=== PATIENT | female | born 1995 | race Caucasian/White ===

== ENCOUNTER 2016-08-26 17:31 | Emergency (ER) | payer OTHER ==
[~2016-08-26] VITALS: Ht 175.3 cm; Wt 104.3 kg
[~2016-08-26 17:31] MED LIST: /ANUSHCSU PR; /MOM400 PO; ABIL2TAB2 PO; ACET50TA PO; ACYC1CAP8 PO; ACYC200CA PO; BACT2CRE TOP; CLOTR1CR TOP; DOCU10ELUD PO; ERYT5OPO OS; IBUP600T26 PO; IBUP80TA PO; LEVO25TA5 PO; MUPI2OI TOP; OMEP20CA3 PO; PRENTAB74 PO; REME15TA PO; VIST25CA PO; ZOLO25TA PO
[2016-08-26] MEDS ORDERED: VRAY1.5C PO (20:37)
[2016-08-26] MEDS ORDERED: BRIN5TAB PO (20:37)
[2016-08-26] MEDS ORDERED: FLUO20CA9 PO (20:37)
[2016-08-26] MEDS ORDERED: PRAZ1CAP PO (20:37)
[2016-08-26] MEDS ORDERED: NS 1,000 ML IV ONE (21:00)
[2016-08-26] MEDS ORDERED: ONDANSETRON 4MG/2ML VIAL (J2405) IV ONE (21:00)
[2016-08-26] MEDS ORDERED: KETOROLAC 30 MG/ML VIAL (J1885) IV ONE (21:00)
[2016-08-26 23:17] VITALS: BP 150/81
== END 2016-08-26 23:19 | disposition home or self-care (01) ==
LOC: M ED 20:13
DX: R51 Headache (principal); R42 Dizziness and giddiness; K21.9 Gastro-esophageal reflux disease without esophagitis; E07.9 Disorder of thyroid, unspecified; F17.210 Nicotine dependence, cigarettes, uncomplicated; Z79.899 Other long term (current) drug therapy
CPT/HCPCS: 96374; 96375; 99282; J1885; J2405

== ENCOUNTER 2021-05-10 13:55 | Emergency (ER) | payer MEDICAID, OTHER ==
[~2021-05-10] VITALS: Ht 175.3 cm; Wt 128.3 kg
[~2021-05-10 13:55] MED LIST changes: -/ANUSHCSU PR; -/MOM400 PO; +ABIL1TAB13 PO; -ABIL2TAB2 PO; -ACET50TA PO; +ACYC1CAP20 PO; -ACYC1CAP8 PO; +ACYC200C8 PO; -ACYC200CA PO; +BRIN1TAB PO; +BRIN5TAB PO; +CLOT1CRE27 TOP; -CLOTR1CR TOP; -DOCU10ELUD PO; +DOCU5LIQ PO; +ERYT5OIN25 OS; -ERYT5OPO OS; +FLUO20CA22 PO; +HYDR1SUP3 PR; +MAPA500T17 PO; +MAPA500T2 PO; +MILK10SU PO; +MIRE1IUD IU; +MIRT-62 PO; +MUPI1OIN2 TOP; -MUPI2OI TOP; +OMEP1CAP73 PO; -OMEP20CA3 PO; +PRAZ1CAP PO; -REME15TA PO; +SUBO8MIS SL; +VENL75TA2 PO; +VRAY1.5C PO; +WELLTAB40 PO
[2021-05-10 13:56] VITALS: BP 114/57
--- OUTSIDE RECORDS SUMMARY | 2021-05-10 14:03 | CCD ---
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 Name Role Phone Dustin Polo Unavailable PROBLEMS No Information ALLERGIES Allergen (clinical drug ingredient) Drug/Non Drug Allergy do cumented on EMR Reaction Allergy Type Onset Date Status colchicine Colchicine vomiting Drug Allergy Active ENCOUNTERS from 1994 to 2021-03-07 Encounter Location Date Provider Diagnosis [facility] [address] [place] [address] [address] [place] [id number] Feb, Dustin Polo Left foot pain M79.672 and C losed fracture of sesamoid bone of left foot, initial encounter S92.812A IMMUNIZATIONS No Information SOCIAL HISTORY Tobacco Use: Social History Observation Description Date Details (start date - stop date) Current Smoker Sex Assigned At : Social History Observation Description Sex Assigned At Unknown Alcohol Screen (Audit-C) Question Answer Notes Did you have a drink containing alcohol in the past year? No Points 0 Interpretation Negative Tobacco Use/Smoking Question Answer Notes Patient is a current smoker How many cigarettes a day do you smoke? 11-20 How often do you smoke cigarettes? every day REASON FOR REFERRAL No Information VITAL SIGNS No information MEDICATIONS Medication SIG (Take, Route, Frequency, Duration) Notes Start Da te End Date Status Depakote 250 MG 1 tablet Orally Twice a day for 30 day(s) Active Prazosin HCl 1 MG 1 capsule Orally Once a day (AM) Active Gabapentin 100 MG 1 capsule Orally Three times a day Active predniSONE 2.5 MG 1 tablet Orally Once a day for 30 day(s) x 10 days Feb, Active Prazosin HCl 5 MG 1 capsule at bedtime Orally Once a day for 30 day(s ) Active Buprenorphine HCl-Naloxone HCl 8-2 MG 1 tablet under t he tongue and allow to dissolve Sublingual twice a day Active PROCEDURES No Information RESULTS No Results REASON FOR VISIT c/o L foot pain/swelling needs xrs MEDICAL (GENERAL) HISTORY Type Description Date Medical History depression Medical History anxiety Medical History mood disorder Medical History h/o opioid abuse (clean x 8 months) Medical History PTSD Surgical History appendectomy 2019 [place] No Information Health Concerns No Information MEDICAL EQUIPMENT No Information MENTAL STATUS No Information FUNCTIONAL STATUS No Information ASSESSMENTS Encounter Date Diagnosis Assessment Notes Treatment Notes Treatm ent Clinical Notes Feb, Left foot pain (ICD-10 - M79.672) X-rays of her left foot today show a fracture of the medial sesamoid under the first MTP joint. Somewhat difficult to tell if this is acute or old. Feb, Closed fracture of sesamoid bone of left foot, initial encounter (ICD-10 - S92.812A) Discussing this with the patient she does report an injury where she slipped on her foot climbing over some uneven driveway with large rocks in it. This may have been her inciting incident. Again I think this really does seem to be a sesamoid fracture under the first MTP joint rather than a case of gout. Although is not 100% definitive I recommend going forward with an MRI to check the acuity of the fracture of the sesamoid. I recommended a stiff soled boot or postoperative shoe to immobilize the first MTP joint. I think we treat this as though a fracture until we can prove otherwise. There is still possibility this is gout in the sesamoid is old but given her account of that injury as well as timing of the pain I think is more likely a sesamoid fracture. PLAN OF TREATMENT Treatment Notes Assessment Notes Clinical Notes Left foot pain X-rays of her left f oot today show a fracture of the medial sesamoid under the first MTP joint. Somewhat difficult to tell if this is acute or old. Closed fracture of sesamoid bone of left foot, initial encou nter Discussing this with the patient she does report an injury where she slipped on her foot climbing over some uneven driveway with large rocks in it. This may have been her inciting incident. Again I think this really does seem to be a sesamoid fracture under the first MTP joint rather than a case of gout. Although is not 100% definitive I recommend going forward with an MRI to check the acuity of the fracture of the sesamoid. I recommended a stiff soled boot or postoperative shoe to immobilize the first MTP joint. I think we treat this as though a fracture until we can prove otherwise. There is still possibility this is gout in the sesamoid is old but given her account of that injury as well as timing of the pain I think is more likely a sesamoid fracture. Treatment Notes Test Name Order Date [facility] 2021-03-07 MRI Lower Ext w/o Contrast - [id number] 2021-03-07 Next Appt Details 2 Weeks Reason:f/u MRI Follow Up:2 Weeksf/u MRI Insurance Providers Payer Name Payer Address Payer Phone Insured Name Patient Relati onship to Insured Coverage Start Date Coverage End Date Harpreet CAPELLAN [address] Corporate Claims Department [facility] [id number] Jayda Martinez self
--- OUTSIDE RECORDS SUMMARY | 2021-05-10 14:03 | CCD ---
Author Author Tata Nahomi [facility] er Organization [facility] [place] [facility] er Address Unknown Phone Unavailable Care Team Providers Care Ribber Name Role Phone Dustin Polo Unavailable PROBLEMS No Information ALLERGIES Allergen (clinical drug ingredient) Drug/Non Drug Allergy do cumented on EMR Reaction Allergy Type Onset Date Status colchicine Colchicine vomiting Drug Allergy Active ENCOUNTERS from 1994 to 2021-03-18 Encounter Location Date Provider Diagnosis [facility] [address] [place] [address] [place] [id number] Feb, Dustin Polo IMMUNIZATIONS No Information SOCIAL HISTORY Tobacco Use: [...] Information RESULTS No Results REASON FOR VISIT MRI APT MEDICAL (GENERAL) HISTORY Type Description Date Medical History depression Medical History anxiety Medical History mood disorder Medical History h/o opioid abuse (clean x 8 months) Medical History PTSD Surgical History appendectomy 2020 [place] No Information Health Concerns No Information MEDICAL EQUIPMENT No Information MENTAL STATUS No Information FUNCTIONAL STATUS No Information ASSESSMENTS No Information PLAN OF TREATMENT No Information Insurance Providers Payer Name Payer Address Payer Phone Insured Name Patient Relati onship to Insured Coverage Start Date Coverage End Date Harpreet CAPELLAN [address] Corporate Claims Department A [facility] [id number] Jayda Martinez Medicaid [address] [facility] [id number] Jayda Dozier self
--- OUTSIDE RECORDS SUMMARY | 2021-05-10 14:03 | CCD ---
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 Interpretation Code Description Data Diamond rce(s) Supporting Document(s) Uric Acid 2.6-6.0 Normal (applies to non-numeric resul ts) [facility] ID Date Data Source [id number] 03/01/2021 07:20:00 PM EDT [facility] Name Value Range Interpretation Code Description Data Diamond rce(s) Supporting Document(s) C-Reactive Protein,Wide Range <3.00 Above high normal [facility] ID Date Data Source [id number] 02/10/2021 09:35:00 PM EDT [facility] Name: JAYDA GROVE [facility] Rec #: [id number] : 1995 Age/Sex: 25F Date of Service: 02/10/21 PHYSICIAN CHART Physician Documentation [facility] Name: Jayda Grove Age: 25 yrs Sex: Female : 1995 Arrival Date: 02/10/2021 Time: 21:35 Bed 8 Private MD: Ness Kirkpatrick ED Physician Margaux Balbuena Disposition: 02/11 00:01 Attestation: Patient was seen by the Advanced Practice borwn Provider. I was personally available in the department for consultation but did not see or discuss the patient with them. 00:06 Chart complete. [facility] HPI: 02/10 22:18 This 25 yrs old Female presents to ER via Walk-In wj with complaints of Foot Pain - possibe cellulitis. 22:18 Patient 25-year-old female IV drug abuser with complaints wjj of red swollen painful left foot x1 week patient denies any trauma and states the swelling and pain seem to be getting worse. Patient denies any known puncture wounds to this area. Patient also denies history of gout. Patient denies IV drug use in her feet. Patient states she last used 2 days ago.. SYSTEMS ENG: 21:45 LMP N/A - control method rc5 Historical: - Allergies: Latex, Natural Rubber; - Home Meds: 1. Suboxone sublingual 18mg once a day 2. aripiprazole 15 mg oral tab 1 tab once daily 3. gabapentin 100 mg oral tab three times a day 4. hydroxyzine HCl 25 mg Oral tab 1 tab 4 times per day - PMHx: BIPOLAR DISORDER; substance abuse; IV drug use; - PSHx: Appendectomy; - Med Reconciliation:: Green Alert: The patient's med list is complete to the best of the nurse's/provider's knowledge. Medications reviewed, completed by nurse verbally from patient/family. - Immunization history,: COVID-19 vaccine: Not immunized. - Advance directive: There is no existing advanced directive. Information offered. - Family History:: mother is healthy, Father is healthy. - Social History: Smoking status (Tobacco): Patient states is a heavy tobacco smoker (>10 cigarettes a day). Preferred Language: Dominican. ROS: 22:20 Constitutional: Negative for fever, chills, and weight wjj loss. MS/extremity: See HPI. All other systems are negative. Exam: 22:20 Constitutional: This is a well developed, well nourished wjj patient who is awake, alert, and in no acute distress. 22:20 Musculoskeletal/extremity: Ex tremities: Left lower extremity there is swelling and tenderness localized to the first MTP region more lateral plantar aspect of the foot there is full active range of motion with no neurovascular deficit distally there is no lymphangitis there is no evidence of puncture wound or foreign body noted. No other areas of involvement.. Vital Signs: 21:45 BP 111 / 65; Pulse 83; Resp 20; Temp 98.6; Pulse Ox 99% on rc5 R/A; Weight 106.59 kg; Height 5 ft. 9 in. (175.26 cm); 23:43 BP 93 / 64; Pulse 71; Resp 20; Pulse Ox 99% on R/A; tc2 02/11 00:12 BP 108 / 71; Pulse 76; Resp 18; Pulse Ox 99% on R/A; tc2 02/10 21:45 Body Mass Index 34.70 (106.59 kg, 175.26 cm) rc5 MDM: 02/10 21:52 Patient medically screened. [facility] 22:21 Data reviewed: vital signs, nurses notes. [facility] 02/11 00:09 Case presented to: Margaux Balbuena MD. [facility] 02/10 22:18 Order name: Uric Acid; Complete Time: 23:38 [facility] 02/10 22:18 Order name: Cbc With Auto Differential; Complete Time: 23:38[facility] 02/10 22:18 Order name: Foot Lt Min 3 Views Each - Xray [facility] 02/10 22:18 Order name: COMMET; Complete Time: 23:38 [facility] 02/10 22:18 Order name: Lactic Acid; Complete Time: 23:38 [facility] 02/10 22:18 Order name: Blood Culture - Venous w Dispensed Medications: 02/10 23:43 Drug: Ibuprofen 600 mg [ibuprofen 600 mg tablet (1 tabs)] tc2 Route: PO; 02/11 00:14 Follow up: Response: Pain is decreased tc2 00:13 Drug: Colchicine 1.2 mg [colchicine 0.6 mg capsule (2 tc2 caps)] {Note: 0.6 sent with patient and education provided to take dose in 30 minutes. .} Route: PO; 00:13 Follow up: Response: Medication administered at discharge. tc2 00:14 Drug: Doxycycline 200 mg [doxycycline hyclate 100 mg tc2 capsule (2 caps)] Route: PO; 00:14 Follow up: Response: Medication administered at discharge. tc2 Disposition Summary: 02/11/21 00:06 Discharge Ordered Location: Home/Self Care wj Condition: Good wjj Diagnosis - Gout, unspecified wjj Followup: wjj - With: Ness Kirkpatrick - When: 2 - 3 days - Reason: Recheck today's complaints, Continuance of care Discharge Instructions: - Discharge Summary Sheet w - Gout, Swko-to-Yrbo wjj Forms: - Medication Reconciliation w Prescriptions: - colchicine 0.6 mg Oral tablet - take 1 tablet by ORAL route 2 times per day; 10 wjj tablet; Refills: 0, Product Selection Permitted - Doxycycline Hyclate 100 mg Oral Tablet - take 1 tablet by ORAL route every 12 hours; 20 wjj tablet; Refills: 0, Product Selection Permitted Signatures: Dispatcher [employer] Tod Whiting PA PA [facility] Nae Morejon RN RN rc5 Margaux Balbuena MD MD lam Carrow, Tyler, RN RN tc2 Name Value Range Interpretation Code Description Data Diamond rce(s) Supporting Document(s) ID Date Data Source [id number] 02/10/2021 09:35:00 PM EDT [facility] Name: JAYDA GROVE [facility] Rec #: [id number] : 1995 Age/Sex: 25F Date of Service: 02/10/21 DISPOSITION SUMMARY Discharge Summary [facility] Name:Jayda Grove [facility] Age:25 yrs Sex:Female :1995 Arrival:02/10/2021 21:35 Departure Date02/11/2021 Departure Time00:17 Private MD:Ness Kirkpatrick Outcome: Discharge Location: Home/Self Care Condition: Good Chief Complaint: Foot Pain - possibe cellulitis Diagnosis: Gout, unspecified Prescriptions: Doxycycline Hyclate 100 mg Oral Tablet - take 1 tablet by ORAL route every 12 hours; 20 tablet, colchicine 0.6 mg Oral tablet - take 1 tablet by ORAL route 2 times per day; 10 tablet Follow up: Ness Kirkpatrick Custom Notes: Attending Physician: Margaux Balbuena MD Private MD: Ness Kirkpatrick Mid Level Provider: Tod Camarena PA Followup Physician: Ness Kirkpatrick Orders: Uric Acid, Cbc With Auto Differential, Foot Lt Min 3 Views Each - Xray, COMMET, Lactic Acid, Blood Culture - Venous, Ibuprofen, Colchicine, Doxycycline Discharge Instruction: Discharge Summary Sheet, Gout, Jojh-ln-Wiej, Medication Reconciliation Name Value Range Interpretation Code Description Data Diamond rce(s) Supporting Document(s) ID Date Data Source [id number] 02/10/2021 09:35:00 PM EDT [facility] Name: JAYDA GROVE [facility] Rec #: [id number] : 1995 Age/Sex: 25F Date of Service: 02/10/21 NURSE CHART Nurse's Notes [facility] Name: Jayda Grove Age: 25 yrs Sex: Female : 1995 Arrival Date: 02/10/2021 Time: 21:35 Bed 8 Private MD: Ness Kirkpatrick Diagnosis: Gout, unspecified Presentation: 02/10 21:39 Transition of care: patient was not received from another [facility] setting of care. Presenting complaint: Patient states - I think my foot is infected. I had a puncture wound to left foot on December and now the foot is red, swollen and painful. Have you travelled in the last 30 days? No. Have you had contact with an individual with a confirmed diagnosis of Ebola or COVID-19? No. 21:39 Method Of Arrival: [facility] 21:39 Acuity: Urgent - [facility] Triage Assessment: 21:40 SEPSIS SCREEN: A Confirmed or Suspected Infection is [facility] Unknown, SIRS or Sepsis criteria is not present. Suicide Screening: Have you had thoughts of harming yourself or others? Yes, you must complete C-SSRS. C-SSRS: In the past month have you wished you were or wished you could go to sleep and not wake up? No In the past month have you had any actual thoughts of killing yourself? No In your lifetime, have you ever done anything, started to do anything, or prepared to do anything to end your life? Yes. Provider notified, safe room with ligature mitigation prepared for the patient and immediate 1:1 observation initiated Was this within the past 3 months? No Note: patient states that suicidal ideation was more than a ago.. every 15 minute safety checks initiated. MD Aware. The patient appears to have some mild discomfort, The patient is cooperative. The patient complains of pain in medial aspect of ball of left foot. Derm: Skin is reddened, Skin temperature is warm medial aspect of left foot. Musculoskeletal: Circulation, motion, and sensation are all intact. Range of motion intact in all extremities. Swelling/Edema present in left foot. Pulses are all present. SYSTEMS ENG: 21:45 LMP N/A - control method rc5 Historical: - Allergies: Latex, Natural Rubber; - Home Meds: 1 . Suboxone sublingual 18mg once a day 2. aripiprazole 15 mg oral tab 1 tab once daily 3. gabapentin 100 mg oral tab three times a day 4. hydroxyzine HCl 25 mg Oral tab 1 tab 4 times per day - PMHx: BIPOLAR DISORDER; substance abuse; IV drug use; - PSHx: Appendectomy; - Med Reconciliation:: Green Alert: The patient's med list is complete to the best of the nurse's/provider's knowledge. Medications reviewed, completed by nurse verbally from patient/family. - Immunization history,: COVID-19 vaccine: Not immunized. - Advance directive: There is no existing advanced directive. Information offered. - Family History:: mother is healthy, Father is healthy. - Social History: Smoking status (Tobacco): Patient states is a heavy tobacco smoker (>10 cigarettes a day). Preferred Language: Dominican. Screenin:49 AUDIT 1. How often do you have a drink containing alcohol? rc5 Never (0 points). Drug Abuse Screening Test: 1. Have you used drugs other than those required for medical reasons? Yes (1 point) 2. Do you use more than one drug at a time? No (0 points) 3. Are you always able to stop using drugs when you want to? (If never used, answer "Yes") No (0 points) 4. Have you ever had blackouts or flashbacks as a result of drug use? No (0 points) 5. Do you ever feel bad or guilty about your drug use? (If never use drugs, answer "No") Yes (1 point) 6. Does your spouse (or parents) ever complain about your involvement with drugs? Yes (1 point) 7. Have you neglected your family because of your use of drugs? No (0 points) 8. Have you engaged in illegal act ivities in order to obtain drugs? No (0 points) 9. Have you ever experienced withdrawal symptoms (felt sick) when you stopped taking drugs? Yes (1 point) 10. Have you had medical problems as a result of your drug use (e.g. memory loss, hepatitis, convulsions, bleeding)? Yes (1 point) Total Score: Zone 3: "intermediate level" (Intervention Required) Intervention: Referral documents/information booklet provided to patient? No Patient Response: patient has been to rehab twice and does not wish to go to rehab at this time. Abuse screen: Denies threats or abuse. Denies injuries from another. Nutritional screening: No deficits noted. Patient has no identifiable fall risk (Stokes Scale: 0 points). Assessment: 22:05 Derm: swelling/tenderness noted to left lower extremity, tc2 plantar region. ROM intact in all extremities, pt. is active IV drug user, denies use of extremity for punctures. 22:10 See Triage Assessment. tc2 Vital Signs: 21:45 BP 111 / 65; Pulse 83; Resp 20; Temp 98.6; Pulse Ox 99% on rc5 R/A; Weight 106.59 kg; Height 5 ft. 9 in. (175.26 cm); 23:43 BP 93 / 64; Pulse 71; Resp 20; Pulse Ox 99% on R/A; tc2 02/11 00:12 BP 108 / 71; Pulse 76; Resp 18; Pulse Ox 99% on R/A; tc2 02/10 21:45 Body Mass Index 34.70 (106.59 kg, 175.26 cm) 5 ED Course: 02/10 21:35 Patient arrived in ED. 11 21:39 Ness Kirkpatrick is Private Physician. 5 21:40 Triage completed. rc5 21:46 Arm band placed on Patient has correct armband on for rc5 positive identification. 21:51 RN with patient while placed into room. 5 21:52 Tico Sargent, RN is Primary Nurse. rc5 21:52 Tod Camarena PA is PHCP. w 21:52 Margaux Balbuena MD is Attending Physician. w 22:45 Radiology: a portable X-ray was completed at 22:45. tc2 22:45 Labs drawn by lab staff. tc2 02/11 00:06 Ness Kirkpatrick is Referral Physician. wjj 00:14 No procedures ordered. tc2 Administered Medications: 02/10 23:43 Drug: Ibuprofen 600 mg [ibuprofen 600 mg tablet (1 tabs)] tc2 Route: PO; 02/11 00:14 Follow up: Response: Pain is decreased tc2 00:13 Drug: Colchicine 1.2 mg [colchicine 0.6 mg capsule (2 tc2 caps)] {Note: 0.6 sent with patient and education provided to take dose in 30 minutes. .} Route: PO; 00:13 Follow up: Response: Medication administered at discharge. tc2 00:14 Drug: Doxycycline 200 mg [doxycycline hyclate 100 mg tc2 capsule (2 caps)] Route: PO; 00:14 Follow up: Response: Medication administered at discharge. tc2 Outcome: 00:06 Discharge ordered by . w 00:15 Patient verbalized understanding of disposition tc2 instructions. Patient has no functional deficits. 00:15 Patient discharged to home ambulatory. 00:15 Condition: good Condition: improved 00:15 Discharge instructions given to patient, Patient was instructed on discharge instructions, follow up and referr al plans, medication usage, The patient demonstrated understanding of instructions, medications, Prescriptions given X 2. 00:15 Vitals are Complete in accordance with Emergency Department Policy. 00:17 Patient left the ED. tc2 Signatures: Tod Camarena PA PA wNae Stark, RN RN rc5 Marci Carroll, Reg Reg sm11 Tico Sargent, TEJINDER RN tc2 Corrections: (The following items were deleted from the chart) 02/10 21:59 21:40 C-SSRS: In the past month have you wished you were rc5 or wished you could go to sleep and not wake up? No In the past month have you had any actual thoughts of killing yourself? No In your lifetime, have you ever done anything, started to do anything, or prepared to do anything to end your life? Yes. Provider notified, safe room with ligature mitigation prepared for the patient and immediate 1:1 observation initiated Was this within the past 3 months? No rc5 Name Value Range Interpretation Code Description Data Diamond rce(s) Supporting Document(s) ID Date Data Source [id number] 02/15/2021 11:58:00 PM EDT [facility] 3 hour post Lactic if elevated? Y Name Value Range Interpretation Code Description Data Diamond rce(s) Supporting Document(s) Blood Culture-Venous [facility] ID Date Data Source [id number] 02/15/2021 10:43:00 PM EDT [facility] 3 hour post Lactic if elevated? Y Name Value Range Interpretation Code Description Data Diamond rce(s) Supporting Document(s) Blood Culture-Venous [facility] ID Date Data Source [id number] 02/10/2021 11:05:00 PM EDT [facility] Name Value Range Interpretation Code Description Data Diamond rce(s) Supporting Document(s) Sodium 140 mmol/L 137-145 Normal (applies to non-numeric resul ts) [facility] Potassium 3.5-5.1 Below low normal [facility] Chloride 106 mmol/L 98-112 Normal (applies to non-numeric resul ts) [facility] Carbon Dioxide CO2 22.0-33.0 Normal (applies to non-numer ic results) [facility] Anion Gap 4.0-11.0 Normal (applies to non-numeric resul ts) [facility] BUN 9 mg/dL 7-17 Normal (applies to non-numeric resul ts) [facility] Creatinine 0.70-1.20 Normal (applies to non-numeric resul ts) [facility] GFR >60 Normal (applies to non-numeric results) [facility] Result based on MDRD formula. Glucose Level 72 mg/dL 74-99 Below low normal [facility] The reference range is only applicable w hen fasting. Calcium-Uncorrected 8.4-10.2 Normal (applies to non-nume phu results) [facility] Corrected Calcium 8.4-10.2 Normal (applies to non-numeri c results) [facility] Bilirubin,Total 0.2-1.3 Normal (applies to non-numeric results) [facility] SGOT(AST) 47 U/L 14-36 Above high normal [facility] SGPT(ALT) 77 U/L 9-52 Above high normal [facility] Alkaline Phosphatase 93 U/L 38-126 Normal (applies to non-num vinayak results) [facility] can increase Alkaline Phosp le vels up to 2 times the normal adult value. Normal values for children and adolescents are 2 to 3 times the normal adult value. Total Protein 6.3-8.2 Normal (applies to non-numeric re sults) [facility] Albumin 3.5-5.0 Below low normal [facility] ID Date Data Source [id number] 02/10/2021 11:05:00 PM EDT [facility] Name Value Range Interpretation Code Description Data Diamond rce(s) Supporting Document(s) Uric Acid 2.6-6.0 Normal (applies to non-numeric resul ts) [facility] ID Date Data Source [id number] 02/10/2021 10:58:00 PM EDT [facility] Name Value Range Interpretation Code Description Data Diamond rce(s) Supporting Document(s) White Blood Count 4.8-10.8 Normal (applies to non-numeri c results) [facility] Red Blood Count 3.68-5.22 Normal (applies to non-numeric results) [facility] Hemoglobin 11.2-15.7 Normal (applies to non-numeric resul ts) [facility] Hematocrit 34.1-44.9 Normal (applies to non-numeric resul ts) [facility] Mean Corpuscular Volume 81-99 Below low normal [facility] Mean Corpuscular Hemoglobin 27.0-33.0 Below low normal [facility] Mean Corpuscular HGB Conc 32.0-36.0 Normal (applies to no n-numeric results) [facility] Red Cell Distribution Width 11.5-14.5 Above high normal [facility] Platelet Count 426 X10 3/uL 130-450 Normal (applies to non-numeric results) [facility] Mean Platelet Volume 9.5-12.7 Normal (applies to non-num vinayak results) [facility] Imm Grans% (AUTO) 0 % 0-2 Normal (applies to non-numeri c results) [facility] Neutrophils % (AUTO) 50 % 40-75 Normal (applies to non-num vinayak results) [facility] Lymphocytes % (AUTO) 36 % 21-46 Normal (applies to non-num vinayak results) [facility] Monocytes % (AUTO) 7 % 5-12 Normal (applies to non-numer ic results) [facility] Eosinophils % (AUTO) 7 % 1-5 Above high normal [facility] Basophils % (AUTO) 0 % 0-1 Normal (applies to non-numer ic results) [facility] Imm Grans# (AUTO) 0.0-0.5 Normal (applies to non-numeri c results) [facility] Neutrophils # (AUTO) 1.5-8.1 Normal (applies to non-num vinayak results) [facility] Lymphocytes # (AUTO) 1.0-3.1 Above high normal [facility] Monocytes # (AUTO) 0.2-1.3 Normal (applies to non-numer ic results) [facility] Eosinophils# (AUTO) 0.0-0.5 Above high normal [facility] Basophils # (AUTO) 0.0-0.1 Normal (applies to non-numer ic results) [facility] ID Date Data Source [id number] 02/10/2021 10:49:00 PM EDT [facility] 3 hour post Lactic if elevated? Y Name Value Range Interpretation Code Description Data Diamond rce(s) Supporting Document(s) Lactic Acid 0.4-2.0 Normal (applies to non-numeric resu lts) [facility] ID Date Data Source [id number] 02/11/2021 08:52:00 PM EDT [facility] Name: JAYDA GROVE : 1994 Age/Sex: 25F Ordering Provider: GARETH Serrato Med Rec #: [id number] Reg Status: [facility] Room #: Date of Service: 02/10/21 Report Number: [id number] cc:JEROD Zendejas Send Report To: [id number] XRP/XR Foot Lt Min. 3 Views Reason for exam: PAIN SWELLING NEAR GREAT TOE FINDINGS: There is a bipartite medial great toe sesamoid. No fracture or dislocation. Hallux valgus deformity. Soft tissue swelling involving the greattoe. IMPRESSION: Abnormal soft tissue swelling at the great toe. No fracture or dislocation. Hallux valgus deformity. Fluoroscopy time in seconds: 0 Number of Exposures: Time Portable Image Performed: Contrast Agent in ml: Method of Administration: REPORT SIGNATURE ON FILE Reported By: Mitul Xiong DO Electr onically signed by: Mitul Xiong DO 02/12/21 1427 Dictation Date/Time: 02/10/212247 Transcribed Date/Time: 02/11/212051 Sandstone Splitter: KAYLEEN Name Value Range Interpretation Code Description Data Diamond rce(s) Supporting Document(s) ID Date Data Source [id number] 01/01/2021 10:04:00 AM EDT [facility] Imaging Services Department Imaging Report [address] [place] [id number] %(RAD)RES..mtdd.print.filter("line") Name: JAYDA GROVE Barry MAZAB: 1995 Age/Sex: 25F Ordering Provider: JEROD Eli Med Rec #: [id number] Reg Status: [facility] Room #: Date of Service: 12/30/20 Report Number: [id number] cc:PCP None Send Report To: [id number] XRP/XR Foot Lt 2 View Reason for exam: pain Clinical history: A 25-year-old female with pain. Comparison: None. FINDINGS: Two radiographs of the left foot are reviewed. No acute fractures or dislocations. No significant soft tissue edema is seen. No radiopaque foreign bodies. The joint spaces are preserved. A bipartite medial sesamoid bone is seen. IMPRESSION: No acute osseous abnormalities. Time portable performed: Fluoroscopy time in seconds: Number of Exposures: Contrast Agent in ml: Method of Administration: REPORT SIGNATURE ON FILE Reported By: Lars Mancera MD <Electronically signed by Lars Mancera MD> 01/01/21 1248 Dictation Date/Time: 12/30/20 2251 Transcribed Date/Time: 01/01/21 1004 [employer] Splitter: ZORHEH Name Value Range Interpretation Code Description Data Diamond rce(s) Supporting Document(s) ID Date Data Source [id number] 07/15/2020 10:08:00 AM [facility] Name Value Range Interpretation Code Description Data Diamond rce(s) Supporting Document(s) SARS-CoV-2 RNA INHOUSE Negative [facility] THIS IS A STATE REPORTABLE COMMUNICABLE DISEASE. Results called 07/15/20 Geraldo Rodriguez RN read back information to [email or web address] Testing was performed using the [employer] COVID-19 MDx Assay. This test has been authorized by FDA under an (Emergency Use Authorization) EUA for use by authorized laboratories for individuals who are suspected of COVID-19 by their healthcare provider. This test is only authorized for the duration of the declaration that circumstances exist justifying the authorization of emergency use of in vitro diagnostic tests for detection and/or diagnosis of SARS-CoV-2. Methodology: Endpoint RT-PCR. Fact sheets for this EUA assay can be found at the following links: Providers: https://www.[employer].gov/media/299430/download Patients : https://www.fda.gov/media/475241/download THIS IS A [facility] REPORTABLE COMMUNICABLE DISEASE Positive results are indicative of the presence of [id number]; clinical correlation with patient history and other diagnostic information is necessary to determine patient infection status. The agent detected may not be the definite cause of disease. Positive results do not rule out bacterial infection or co-infection with other viruses. ID Date Data Source [id number] 03/21/2020 07:11:00 PM EDT [facility] Name Value Range Interpretation Code Description Data Diamond rce(s) Supporting Document(s) UDS Phencyclidine Screen Negative Normal (applies to non -numeric results) [facility] UDS Benzodiazepines Screen Negative Normal (applies to n on-numeric results) [facility] UDS Cocaine Screen Negative Normal (applies to non-numer ic results) [facility] UDS Ampetamine Screen Negative Normal (applies to non-nu meric results) [facility] UDS Cannabinoids Screen Negative Vaneg[facility] UDS Opiates Screen Negative Normal (applies to non-numer ic results) [facility] UDS Barbiturates Screen Negative Normal (applies to non- numeric results) [facility] UDS Tricyclic Screen Negative Normal (applies to non-num vinayak results) [facility] Therapeutic Drug Ranges for Emergency Threshold Levels (ng/mL) PCP 25 Benzodiazepine 300 Cocaine 300 Amphetamines 1000 Cannabinoids 50 Opiates 300 Barbiturates 300 Tricyclic(TCA) 1000 Emergency toxicology analytes exceeding the therapeutic threshold levels are positive. Positive findings are unconfirmed. Positive drug levels may be confirmed at the request of the ordering provider. Results are to be used for medical treatment purposes only. Procedure Social History Code Duration Value Status Description Data Source(s ) Smoking 03/07/2021 12:00:00 AM EDT Current Smoker completed Curre nt Smoker eCW1 ([facility]) Smoking 03/07/2021 12:00:00 AM EDT Current Smoker completed Curre nt Smoker eCW1 ([facility]) Vital Signs ID Date Data Source [id number] 04/16/2021 04:28:00 PM EDT [facility] spital Name Value Range Interpretation Code Description Data Source(s) Weight Measurement Method 8 8 [facility] Weight (Calculated Kilograms) 93.17 93.17 [facility] Weight 4400 4400 [facility] pital Temperature Source 7 7 [facility] Temperature 97.2 97.2 [facility] spital Respiratory Effort 1 1 [facility] Respiratory Rate 16 16 [facility] Pulse Assessment Method 4 4 G [facility] Pulse [facility] 68 68 [facility] Height (Calculated Centimeters) 175.26 175. 26 [facility] Height 69 69 [facility] Blood Pressure 105/54 105/54 [facility] Body Mass Index (BMI) 30.3 30.3 [facility] Weight (Calculated Kilograms) 93.17 93.17 [facility] Height (Calculated Centimeters) 175.26 175. 26 [facility] Body Mass Index (BMI) 30.3 30.3 [facility] Weight (Calculated Kilograms) 93.17 93.17 [facility] Height (Calculated Centimeters) 175.26 175. 26 [facility] Body Mass Index (BMI) 30.3 30.3 [facility] ID Date Data Source [id number] 03/05/2021 10:40:00 AM EDT [facility] Name Value Range Interpretation Code Description Data Source(s) Weight (Calculated Kilograms) 98.88 98.88 [facility] Height (Calculated Centimeters) 175.26 175. 26 [facility] Body Mass Index (BMI) 32.1 32.1 [facility] Weight (Calculated Kilograms) 98.88 98.88 [facility] Height (Calculated Centimeters) 175.26 175. 26 [facility] Body Mass Index (BMI) 32.1 32.1 [facility] ID Date Data Source [id number] 03/05/2021 10:42:00 AM EDT [facility] Name Value Range Interpretation Code Description Data Source(s) Weight (Calculated Kilograms) 98.88 98.88 [facility] Height (Calculated Centimeters) 175.26 175. 26 [facility] Body Mass Index (BMI) 32.1 32.1 [facility] Weight (Calculated Kilograms) 98.88 98.88 [facility] Height (Calculated Centimeters) 175.26 175. 26 [facility] Body Mass Index (BMI) 32.1 32.1 [facility] Weight (Calculated Kilograms) 98.88 98.88 [facility] Height (Calculated Centimeters) 175.26 175. 26 [facility] Body Mass Index (BMI) 32.1 32.1 [facility] ID Date Data Source [id number] 04/29/2021 11:29:00 AM EDT [facility] spital Name Value Range Interpretation Code Description Data Source(s) Weight Measurement Method 8 8 [facility] Weight (Calculated Kilograms) 93.17 93.17 [facility] Weight 4160 4160 [facility] 7 7 [facility] Temperature 97.7 97.7 [facility] spital Respiratory Effort 1 1 [facility] Respiratory Rate 14 14 [facility] Pulse Assessment Method 4 4 G [facility] Pulse Rate 90 90 [facility] Height (Calculated Centimeters) 175.26 175. 26 [facility] Blood Pressure 126/70 126/70 [facility] Body Mass Index (BMI) 30.3 30.3 [facility] Weight Measurement Method 8 8 [facility] Weight (Calculated Kilograms) 93.17 93.17 [facility] Weight 4160 4160 [facility] Source 7 7 [facility] Temperature 97.7 97.7 [facility] spital Respiratory Effort 1 1 [facility] Respiratory Rate 14 14 [facility] Pulse Assessment Method 4 4 G [facility] Pulse Rate 90 90 [facility] Height (Calculated Centimeters) 175.26 175. 26 [facility] Blood Pressure 126/70 126/70 [facility] Body Mass Index (BMI) 30.3 30.3 [facility] Weight (Calculated Kilograms) 93.17 93.17 [facility] Height (Calculated Centimeters) 175.26 175. 26 [facility] Body Mass Index (BMI) 30.3 30.3 [facility] Weight (Calculated Kilograms) 93.17 93.17 [facility] Height (Calculated Centimeters) 175.26 175. 26 [facility] Body Mass Index (BMI) 30.3 30.3 [facility] ID Date Data Source [id number] 07/15/2020 10:08:00 AM EST [facility] spital Name Value Range Interpretation Code Description Data Source(s) Weight (Calculated Kilograms) 93.17 93.17 [facility] Height (Calculated Centimeters) 175.26 175. 26 [facility] Body Mass Index (BMI) 30.3 303 [facility] ID Date Data Source [id number] 03/21/2020 08:04:00 PM EDT [facility] sp[facility] Name Value Range Interpretation Code Description Data Source(s) Weight Measurement Method 8 8 [facility] Weight (Calculated Kilograms) 93.17 93.17 [facility] Weight 3760 3760 [facility] pital Temperature Source 7 7 [facility] Temperature 97.9 97.9 [facility] spital Respiratory Effort 1 1 [facility] Respiratory Rate 16 16 [facility] Pulse Assessment Method 4 4 G [facility] Pulse Rate 62 62 [facility] Height (Calculated Centimeters) 175.26 175. 26 [facility] Height 69 69 [facility] Blood Pressure 124/69 124/69 [facility] Body Mass Index (BMI) 30.3 30.3 [facility] Weight Measurement Method 8 8 [facility] Weight (Calculated Kilograms) 93.17 93.17 [facility] Weight 3760 3760 [facility] pital Temperature Source 7 7 [facility] Temperature 97.9 97.9 [facility] spital Respiratory Effort 1 1 [facility] Respiratory Rate 16 16 [facility] Pulse Assessment Method 4 4 G [facility] Pulse Rate 62 62 [facility] pital Height (Calculated Centimeters) 175.26 175. 26 [facility] Height 69 69 [facility] Blood Pressure 124/69 124/69 [facility] Body Mass Index (BMI) 30.[address] Weight (Calculated Kilograms) 93.17 93.17 [facility] Height (Calculated Centimeters) 175.26 175. 26 [facility] Body Mass Index (BMI) 30.[address]
[2021-05-10] MEDS ORDERED: HYDR50TA70 (14:09)
--- NOTE | 2021-05-10 14:56 | REP ---
INDICATION: trauma. COMPARISON: None. TECHNIQUE: Four views of the right hand were obtained. FINDINGS: No definite fracture or dislocation is identified. The soft tissues appear normal. IMPRESSION: Unremarkable examination. <Electronically signed by Finn Vazquez > 05/10/21 [id number]
--- OUTSIDE RECORDS SUMMARY | 2021-05-10 18:55 | CCD ---
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 (applies to non-numer ic results) [facility] UDS Barbiturates Screen Negative Normal (applies to non- numeric results) [facility] UDS Tricyclic Screen Negative Normal (applies to non-num vinayak results) [facility] Therapeutic Drug Ranges for Emergency Threshold Levels [...] Current Smoker completed Curre nt Smoker eCW1 ([facility]) Smoking 03/07/2021 12:00:00 AM EDT Current Smoker completed Curre nt Smoker eCW1 ([facility]) Vital Signs ID Date Data Source [id number] 04/16/2021 04:28:00 PM EDT [facility] spital Name Value Range Interpretation Code Description Data Source(s) Weight Measurement Method 8 8 [facility] Weight (Calculated Kilograms) 93.17 93.17 [facility] Weight [address] [facility] pital Temperature Source 7 7 [facility] Temperature 97.2 97.2 [facility] spital Respiratory Effort 1 1 [facility] Respiratory Rate 16 16 [facility] Pulse Assessment Method 4 4 G [facility] Pulse Rate 68 68 [facility] Height (Calculated Centimeters) 175.26 175. 26 [facility] Height 69 69 [facility] Blood Pressure 105/54 105/54 [facility] Body Mass Index (BMI) 30.3 30.3 [facility] Weight (Calculated Kilograms) 93.17 93.17 [facility] Height (Calculated Centimeters) 175.26 175. 26 [facility] Body Mass Index (BMI) 30.3 30.3 [facility] Weight (Calculated Kilograms) 93.17 93.17 [facility] Height (Calculated Centimeters) 175.26 175. 26 [facility] Body Mass Index (BMI) 30.3 30.3 [facility] ID Date Data Source [id number] 03/05/2021 10:40:00 AM EDT [facility] Name Value Range Interpretation Code Description Data Source(s) Weight (Calculated Kilograms) 98.88 98.88 [facility] Height (Calculated Centimeters) 175.26 175. 26 [facility] Body Mass Index (BMI) [address] [facility] Weight (Calculated Kilograms) 98.88 98.88 [facility] Height (Calculated Centimeters) 175.26 175. 26 [facility] Body Mass Index (BMI) 32.[address] [facility] ID Date Data Source [id number] 03/05/2021 10:42:00 AM EDT [facility] Name Value Range Interpretation Code Description Data Source(s) Weight (Calculated Kilograms) 98.88 98.88 [facility] Height (Calculated Centimeters) 175.26 175. 26 [facility] Body Mass Index (BMI) [address] [facility] Weight (Calculated Kilograms) 98.88 98.88 [facility] Height (Calculated Centimeters) 175.26 175. 26 [facility] Body Mass Index (BMI) [address] [facility] Weight (Calculated Kilograms) 98.88 98.88 [facility] Height (Calculated Centimeters) 175.26 175. 26 [facility] Body Mass Index (BMI) 32.[address] [facility] ID Date Data Source [id number] 04/29/2021 11:29:00 AM EDT [facility] spital Name Value Range Interpretation Code Description Data Source(s) Weight Measurement Method 8 8 [facility] Weight (Calculated Kilograms) 93.17 93.17 [facility] Weight 4160 4160 [facility] Temperature Source 7 7 [facility] Temperature 97.7 97.7 [facility] spital Respiratory Effort 1 1 [facility] Respiratory Rate 14 14 [facility] Pulse Assessment Method 4 4 G [facility] Pulse Rate 90 90 [facility] Height (Calculated Centimeters) 175.26 175. 26 [facility] Blood Pressure 126/70 126/70 [facility] Body Mass Index (BMI) 30.3 30.3 [facility] Weight Measurement Method 8 8 [facility] Weight (Calculated Kilograms) 93.17 93.17 [facility] Weight 4160 4160 [facility] Temperature Source 7 7 [facility] Temperature 97.7 97.7 [facility] spital Respiratory Effort 1 1 [facility] Respiratory Rate 14 14 [facility] Pulse Assessment Method 4 4 G [facility] Pulse Rate 90 90 [facility] Height (Calculated Centimeters) 175.26 175. 26 [facility] Blood Pressure 126/70 126/70 [facility] Body Mass Index (BMI) 30.3 30.3 [facility] Weight (Calculated Kilograms) 93.17 93.17 [facility] Height (Calculated Centimeters) 175.26 175. 26 [facility] Body Mass Index (BMI) 30.3 30.3 [facility] Weight (Calculated Kilograms) 93.17 93.17 [facility] Height (Calculated Centimeters) 175.26 175. 26 [facility] Body Mass Index (BMI) 30.3 30.3 [facility] ID Date Data Source [id number] 07/15/2020 10:08:00 AM EST [facility] spital Name Value Range Interpretation Code Description Data Source(s) Weight (Calculated Kilograms) 93.17 93.17 [facility] Height (Calculated Centimeters) 175.26 175. 26 [facility] Body Mass Index (BMI) 30.3 303 [facility] ID Date Data Source [id number] 03/21/2020 08:04:00 PM EDT [facility] spital Name Value Range Interpretation Code Description Data Source(s) Weight Measurement Method 8 8 [facility] Weight (Calculated Kilograms) 93.17 93.17 [facility] Weight [address] [facility] pital Temperature Source 7 7 [facility] Temperature 97.9 97.9 [facility] spital Respiratory Effort 1 1 [facility] Respiratory Rate 16 16 [facility] Pulse Assessment Method 4 4 G [facility] Pulse Rate 62 62 [facility] Height (Calculated Centimeters) 175.26 175. 26 [facility] Height 69 69 [facility] Blood Pressure 124/69 124/69 [facility] Body Mass Index (BMI) 30.3 30.3 [facility] Weight Measurement Method 8 8 [facility] Weight (Calculated Kilograms) 93.17 93.17 [facility] Weight [address] [facility] pital Temperature Source 7 7 [facility] Temperature 97.9 97.9 [facility] spital Respiratory Effort 1 1 [facility] Respiratory Rate 16 16 [facility] Pulse Assessment Method 4 4 G [facility] Pulse Rate [address] [facility] pital Height (Calculated Centimeters) 175.26 175. 26 [facility] Height 69 69 [facility] Blood Pressure 124/69 124/69 [facility] Body Mass Index (BMI) 30.[address] Weight (Calculated Kilograms) 93.17 93.17 [facility] Height (Calculated Centimeters) 175.26 175. 26 [facility] Body Mass Index (BMI) 30.[address]
== END 2021-05-10 18:49 | disposition left against medical advice (07) ==
LOC: M ED 13:55
DX: Z53.21 Procedure and treatment not carried out due to patient leaving prior to being seen by health care provider (principal)